=== PATIENT | male | born 1985 | race Two or more races ===

== ENCOUNTER 2024-03-01 17:04 | Emergency (ER) | payer SELFPAY ==
[2024-03-01 17:20] VITALS: BP 128/74; PULSE 63; RESP 19; TEMP 37.1; O2SAT 98; BMI 21.8
--- NOTE | 2024-03-01 17:42 | EXP.UTC ---
Discharge Plan Disposition Chief Complaint: Abdominal Pain Referrals Follow up/Referrals: Provider,Referral, [Primary Care Provider] - See instructions Instructions Patient Instructions: DI for Acute Abdominal Pain Print Language Print Language: Wallisian Discharge ED Provider: Ysabel Lazar [facility] General Chief complaint: Abdominal Pain Stated complaint: Stomach pain Mode of Arrival: Ambulatory Source of Information: Patient and Relative Limitations: No Limitations Time Seen by Provider: 03/01/24 17:42 Description of Symptoms (Recalled from Triage Doc. by RN): PATIENT C/O PAIN AND BLOATING TO UPPER ABDOMEN WHEN TRYING TO EAT THAT STARTED LAST NIGHT. PATIENT DENIES VOMITING OR DIARRHEA HEENT Symptoms (Recalled from RN notes): No Resp Symptoms (Recalled from RN notes): No Skin Symptoms (Recalled from RN notes): No MS Symptoms (Recalled from RN notes): No Functional Status (Recalled from RN notes): WNL History of Present Illness Provider Complaint: Patient primarily Wallisian speaking, used senior mobile solutions architect to communicate with patient, states that he started last night with moderate pain and discomfort across his upper abdomen that has continued to get worse pain started yesterday evening when he was trying to eat and not been able to eat much due to the pain, had 2 bowel movements yesterday and 2 day states one today was a little hard/a little soft denies vomiting or diarrhea states pain this evening is more uncomfortable Related Data Allergies Allergy/AdvReac Type Severity Reaction Status Date / Time No Known Allergies Allergy Verified 03/01/24 17:36 Worker's Comp Is this a Worker's Comp case?: No [facility] Disclaimer: The information contained in this section may have been updated after the patient was seen, as this information can be updated by other users. Medical History (Updated 03/01/24 @ 17:37 by Betty Melton RN) No significant past medical history Social History Smoking Status: Never smoker alcohol intake: never current occupational status: employed Travel in the last 8 weeks: None ROS Obtained: Yes All systems reviewed & no additional complaints except as documented and Yes Systems reviewed as appropriate & no additional complaints except as documented Constitutional Constitutional: Reports system reviewed and no additional complaints, except as documented, Reports as per HPI and Denies fever(s) ENT Ears, Nose, Mouth, and Throat: Reports system reviewed and no additional complaints, except as documented and Reports as per HPI Cardiovascular Cardiovascular: Reports system reviewed and no additional complaints, except as documented and Reports as per HPI Respiratory Respiratory: Reports system reviewed and no additional complaints, except as documented and Reports as per HPI Gastrointestinal Gastrointestingal: Reports system reviewed and no additional complaints, except as documented, as per HPI and abdominal pain (across upper abdomen); Denies belching, coffee ground emesis, diarrhea, hematemesis, melena, nausea or vomiting Physical Exam General General appearance: alert and in no apparent distress Respiratory Respiratory exam: Present normal lung sounds bilaterally; Absent respiratory distress or wheezes Cardiovascular Cardiovascular exam: Present regular rate and normal rhythm Abdominal Exam Abdominal exam: Present soft and tenderness (reports tenderness in upper abdomen with palpation) Neurological Exam Neurological exam: Present alert, oriented X3 and normal gait Medical Decision Making Medical Records Screening: Per USPSTF and CDC recommendations, given the prevalence of disease in our region, it is our hospital?s policy to screen for HIV and viral Hepatitis for all patients aged 18 and over and those with ongoing risk factors. Nick Inquiry Pt receiving controlled substance: No Nick was queried for this patient: No Vital Signs: 03/01/24 17:20 Temperature 98.8 F Temperature Source Oral Pulse Rate [Left Brachial] 63 Respiratory Rate 19 Blood Pressure [Left Arm] 128/74 Blood Pressure Mean [Left Arm] 92 Blood Pressure Source [Left Arm] Automatic Cuff Blood Pressure Position [Left Arm] Sitting 02 Sat by Pulse Oximetry 98 Oxygen Delivery Method Room Air Lab Data 03/01/24 18:03 03/01/24 18:03 Medical Decision Narrative: Patient states that he started with pain in his upper abdomen yesterday that has continued to get worse and not able to eat Patient sitting in chair and appears uncomfortable Denies N/V/D discussed with patient and due to complaints of abdominal pain will transfer to the ED for further work up and evaluaton and he agreed patient was moved to room 11
--- NOTE | 2024-03-01 17:43 | PC.NURSE ---
PATIENT SENT TO ER PER Laila RAMIREZ APRN FOR FURTHER EVALUATION. REPORT GIVEN TO DR. MALLOY BY Laila RAMIREZ APRN. PATIENT AMBULATED TO ER WITH [facility] STAFF ASSIST AT THIS TIME
[2024-03-01 17:53] VITALS: BP 143/93; PULSE 63; RESP 18; TEMP 37.3; O2SAT 97; BMI 23.0
--- NOTE | 2024-03-01 17:54 | CT_ITS ---
PROCEDURE INFORMATION: Exam: CT Abdomen And Pelvis With Contrast Exam date and time: 03/01/2024 6:28 PM Age: 38 years old Clinical indication: Abdominal pain TECHNIQUE: Imaging protocol: Computed tomography of the abdomen and pelvis with contrast. Radiation optimization: All CT scans at this facility use at least one of these dose optimization techniques: automated exposure control; mA and/or kV adjustment per patient size (includes targeted exams where dose is matched to clinical indication); or iterative reconstruction. Contrast material: ISOVUE; Contrast volume: 75 ml; Contrast route: IV; COMPARISON: No relevant prior studies available. FINDINGS: Lungs: Dependent bilateral lung base opacities favor atelectasis. Liver: Multiple hypoattenuating circumscribed structures of the liver compatible with simple hepatic cysts with the largest measuring 0.9 cm in diameter. Gallbladder and biliary ducts: Normal. No calcified stones. No ductal dilation. Pancreas: Normal. No ductal dilation. Spleen: Normal. No splenomegaly. Adrenal glands: Normal. No mass. Kidneys and ureters: Normal. No hydronephrosis. Stomach and bowel: Unremarkable. No obstruction. No mucosal thickening. Appendix: No evidence of appendicitis. Intraperitoneal space: Unremarkable. No free air. No significant fluid collection. Vasculature: Unremarkable. No abdominal aortic aneurysm. Lymph nodes: Unremarkable. No enlarged lymph nodes. Urinary bladder: Unremarkable as visualized. Reproductive: Unremarkable as visualized. Bones/joints: Mild loss of intervertebral disc space with degenerative changes at L4 through S1. Soft tissues: Normal. IMPRESSION: No CT findings that explain patient's symptoms.
--- NOTE | 2024-03-01 18:05 | ED_ITS ---
<Statement entered by Ysabel Lazar MD - 03/02/24 00:40> I was consulted by the ROOSEVELT, and we discussed the complexity of problems being addressed. I approved the treatment and management plan for this patient's care in the emergency department, thus performing a substantive portion of the medical decision making. Ysabel Lazar MD Discharge Plan Disposition Chief Complaint: Abdominal Pain Referrals Follow up/Referrals: Provider,Referral, [Primary Care Provider] - See instructions Instructions Patient Instructions: DI for Acute Abdominal Pain Print Language Print Language: Kinyarwanda Discharge ED Provider: Ysabel Lazar General Adult HPI General Chief complaint: Abdominal Pain Stated complaint: Stomach pain Time Seen by Provider: 03/01/24 17:42 Mode of Arrival: Ambulatory Source of Information: Patient Limitations: No Limitations Description of Symptoms (Recalled from ER Triage Doc. by RN): patient reports abdominal pain across abdomen worse in the left side. patient states it started a week ago and got better but started getting worse last night. patient reports it worsens with eating. Denies nausea, vomiting, and fevers. Reports last bowel movement was 3 hours ago. History of Present Illness HPI narrative: This is a 38-year-old male who presents to the ED today for abdominal pain that is more diffuse but worse on the left side. He says when he eats he feels swollen and has abdominal pain. This started 1 week ago. He says it went away but restarted worse yesterday. No vomiting or diarrhea. His last BM was about 3 hours ago. No back pain no dysuria. No fevers or chills. Denies any chest pain or shortness of breath. No other associated signs or symptoms at this time. Related Data Allergies Allergy/AdvReac Type Severity Reaction Status Date / Time No Known Allergies Allergy Verified 03/01/24 17:36 [facility] Disclaimer: The information contained in this section may have been updated after the patient was seen, as this information can be updated by other users. Medical History (Updated 03/01/24 @ 17:37 by Betty Melton RN) No significant past medical history Social History (Updated 03/01/24 @ 19:39 by Kavya Decker APRN) Smoking Status: Never smoker alcohol intake: never current occupational status: employed Travel in the last 8 weeks: None ROS Obtained: Yes Systems reviewed as appropriate & no additional complaints except as documented Constitutional Constitutional: Reports system reviewed and no additional complaints, except as documented and Reports as per HPI Physical Exam General General appearance: alert and in no apparent distress Head Head exam: atraumatic and normocephalic Eye Eye exam: Present normal appearance, PERRL and EOMI ENT ENT exam: Present normal exam, normal oropharynx and mucous membranes moist Neck Neck exam: Present normal inspection, full ROM and trachea midline Chest Chest inspection: Present normal inspection Respiratory Respiratory exam: Present normal lung sounds bilaterally Cardiovascular Cardiovascular exam: Present regular rate, normal rhythm, normal heart sounds, +S1 and +S2 Abdominal Exam Abdominal exam: Present soft, tenderness and normal bowel sounds Abdominal tenderness: Present LUQ and epigastrium Extremities Exam Extremities exam: Present normal inspection, full ROM and normal capillary refill Neurological Exam Neurological exam: Present alert, oriented X3 and normal gait Skin Skin exam: Present warm, dry and intact Medical Decision Making Medical Records Screening: Per USPSTF and CDC recommendations, given the prevalence of disease in our region, it is our hospital?s policy to screen for HIV and viral Hepatitis for all patients aged 18 and over and those with ongoing risk factors. Nick Inquiry Pt receiving controlled substance: No Vital Signs: 03/01/24 17:20 03/01/24 17:53 Temperature 98.8 F 99.1 F Temperature Source Oral Oral Pulse Rate [Left Brachial] 63 63 Respiratory Rate 19 18 Blood Pressure [Left Arm] 128/74 143/93 H Blood Pressure Mean [Left Arm] 92 109 Blood Pressure Source [Left Arm] Automatic Cuff Automatic Cuff Blood Pressure Position [Left Arm] Sitting 02 Sat by Pulse Oximetry 98 97 Oxygen Delivery Method Room Air Room Air Lab Data Lab Results 03/01/24 18:03: WBC 5.6, RBC 5.49, Hgb 17.0, Hct 50.6, MCV 92.0, MCH 31.0, MCHC 33.6, RDW 13.7, Plt Count 285, MPV 7.9, Neut % (Auto) 45.9, Lymph % (Auto) 8.9 L , [place] % (Auto) 28.2 H, Eos % (Auto) 16.5 H, Baso % (Auto) 0.5, Neut # (Auto) 2.6, Lymph # (Auto) 0.5 L, [place] # (Auto) 1.6 H, Eos # (Auto) 0.9 H, Baso # (Auto) 0.0, Total Counted 100, Neutrophils % (Manual) 48, Lymphocytes % (Manual) 7 L, Atypical Lymphs % 5.0, Monocytes % (Manual) 22 H, Eosinophils % (Manual) 18 H, Platelet Estimate Normal, RBC Morphology Normal, Sodium 139, Potassium 4.0, C hloride 108 H, Carbon Dioxide 28, Anion Gap 7.0, BUN 11, Creatinine 0.70, Estimated Creat Clear 117, Estimated GFR 125, Est GFR ( Amer) 151, Glucose 100, Calcium 9.3, Total Bilirubin 0.8, AST 39, ALT 35, Alkaline Phosphatase 75, Total Creatine Kinase 194 H, CK-MB (CK-2) 5.6 H, CK-MB (CK-2) Rel Index 2.9, Troponin I < 0.01, Total Protein 7.3, Albumin 4.5, Globulin 2.8, Albumin/Globulin Ratio 1.6, Amylase 74, Lipase 61, HIV 1&2 Antibody Rapid Nonreactive 03/01/24 19:02: Urine Color Yellow, Urine Appearance Clear, Urine pH 7.0, Ur Specific [place] 1.010, Urine Protein Negative, Urine Glucose (UA) Negative, Urine Ketones Negative, Urine Blood Negative, Urine Nitrate Negative, Urine Bilirubin Negative, Urine Urobilinogen 0.2, Ur Leukocyte Esterase Negative, Urine RBC Occasional, Urine WBC Occasional, Ur Squamous Epith Cells 3-5 03/01/24 18:03 03/01/24 18:03 Orders (Tests/Meds): ED MEDICATIONS Generic Name Dose Route Start Last Admin Trade Name Freq PRN Reason Stop Dose Admin Sodium Chloride 8 ml 03/01/24 17:53 Sodium Chloride 0.9% 10ml Vial IV 03/31/24 17:52 NEEDED PRN dilute pepcid Discontinued Medications Generic Name Dose Route Start Last Admin Trade Name Freq PRN Reason Stop Dose Admin Famotidine 20 mg 03/01/24 17:53 03/01/24 18:13 Famotidine 20mg/2ml Vial IV 03/01/24 17:54 20 mg ONCE ONE Administration Sodium Chloride 1,000 mls @ 999 mls/hr 03/01/24 18:00 03/01/24 18:14 Sod Chlor 0.9% 1000ml Bag IV 03/01/24 19:00 999 mls/hr .Q1H1M KETAN Administration Iopamidol 75 ml 03/01/24 18:33 03/01/24 18:33 Iopamidol-370 (76%);100ml Bottle IV 03/01/24 18:34 75 ml ONCE ONE Administration Ketorolac Tromethamine 30 mg 03/01/24 17:53 03/01/24 18:13 Ketorolac 30mg/Ml Vial IV 03/01/24 17:54 30 mg ONCE ONE Administration Ondansetron HCl 4 mg 03/01/24 17:53 03/01/24 18:13 Ondansetron 4mg/2ml Vial IV 03/01/24 17:54 4 mg ONCE ONE Administration Sodium Chloride 10 ml 03/01/24 18:33 03/01/24 18:33 Sodium Chloride 0.9% 10ml Syr (Rad Only) IV 03/01/24 18:34 10 ml ONCE ONE Administration ORDERS Category Date Time Status CT abdomen pelvis w con Stat Cat Scan 03/01/24 17:54 Completed Amylase Stat Lab 03/01/24 18:03 Completed CBC [Complete Blood Count Auto Diff] Stat Lab 03/01/24 18:03 Completed Cardiac Enzymes Stat Lab 03/01/24 18:03 Completed Comprehensive Metabolic Panel Stat Lab 03/01/24 18:03 Completed HIV (1&2) Antibody Rapid Stat Lab 03/01/24 18:03 Completed Hep C Ab with Reflex to RNA Stat Lab 03/01/24 18:03 Received Lipase Stat Lab 03/01/24 18:03 Completed Urinalysis and Microscopic Stat Lab 03/01/24 19:02 Completed Medical Decision Narrative: Insert review patient is a 38-year-old male presenting to the emergency department for evaluation of abdominal pain. Patient is hemodynamically stable and nontoxic-appearing upon arrival, afebrile. Differential diagnosis includes diverticulitis, bowel obstruction, cholecystitis, appendicitis, viral illness among others. Workup will be conducted with hematologic labs, specific imaging including CT scan with and without contrast. Initial inventions include crystalloid bolus, IV Toradol, Zofran for nausea. Initial workup reviewed by me urinalysis was normal, normal white count, normal liver and kidney function and normal CT scan. Imaging informally interpreted by me and remarkable for nothing acute. Formal imaging read remarkable for nothing acute. Upon repeat evaluation patient was improved and feeling better. Discussed with patient results of CT scan were negative and labs were essentially negative. Patient will be going home with some Lalo and Sammi. Critical Care Critical Care Time Critical Care Time: No
[2024-03-01] MEDS: KETOROLAC 30MG/ML VIAL 30 MG IV (18:13)
[2024-03-01] MEDS: ONDANSETRON 4MG/2ML VIAL 4 MG IV (18:13)
[2024-03-01] MEDS: FAMOTIDINE 20MG/2ML VIAL 20 MG IV (18:13)
[2024-03-01] MEDS: 0.9 % SODIUM CHLORIDE 1000ML 1,000 ML 999 ML IV (18:14)
[2024-03-01 18:16] LABS: Albumin Level 4.5 g/dl (3.5-5.0); Chloride 108 mmol/L (98-107); Sodium 139 mmol/L (136-145)
--- NOTE | 2024-03-01 18:16 | ECG_ITS ---
APPROVED REPORT Exam: Resting ECG HR:63 bpm ECG Measurements Heart Rate 63 AXES WV 168 P 50 QRSd 117 QRS 144 QT 390 T 8 QTc 398 Conclusion SINUS RHYTHM INCOMPLETE RIGHT BUNDLE BRANCH BLOCK [90+ ms QRS DURATION, TERMINAL R IN V1/V2, 40+ ms S IN I/aVL/V4/V5/V6] RIGHT VENTRICULAR HYPERTROPHY [SOME/ALL OF: PROMINENT R IN V1, LATE TRANSITION, RAD, KEESHA, SSS] ST ELEVATION, PROBABLY EARLY REPOLARIZATION [ST ELEVATION WITH NORMALLY INFLECTED T-WAVE] ABNORMAL ECG UNCONFIRMED REPORT Electronically signed by : Ysabel Lazar, 03/01/2024 20:13:00
[2024-03-01 18:19] LABS: Alanine Aminotransferase 35 U/L (12-78); Albumin/Globulin Ratio 1.6 (1.1-1.8); Alkaline Phosphatase 75 U/L (38-126); Amylase 74 U/L (30-110); Aspartate Amino Transferase 39 U/L (17-59); Bilirubin,Total 0.8 mg/dl (0.2-1.3); Blood Urea Nitrogen 11 mg/dl (9-20); Calcium 9.3 mg/dl (8.4-10.2); Creatine Kinase 194 U/L (55-170); Creatinine Clearance Estimated 117 mL/min (50-200); Estimated Glomerular Filt Rate 125 ml/min (>60); GFR (African American) 151 ML/MIN (>60); Globulin 2.8 g/dL (1.3-3.2); Glucose 100 mg/dl (74-100); Total Protein,Serum 7.3 g/dl (6.3-8.2)
--- NOTE | 2024-03-01 18:22 | PC.NURSE ---
pt to CT
[2024-03-01 18:28] LABS: CKMB Relative Index 2.9 U/L (0-4.0); Creatine Kinase MB 5.6 ng/ml (0.0-2.03)
[2024-03-01 18:33] LABS: Troponin I < 0.01 ng/ml (0.00-0.034)
[2024-03-01] MEDS: SODIUM CHLORIDE 0.9% 10ML SYR (RAD ONLY) 10 ML IV (18:33)
[2024-03-01] MEDS: IOPAMIDOL-370 (76%);100ML BOTTLE 75 ML IV (18:33)
[2024-03-01 18:36] LABS: Carbon Dioxide 28 mmol/L (22.0-30.0); Lipase 61 U/L (23-300)
[2024-03-01 18:38] LABS: Basophils % 0.5 % (0.1-2.0); Eosinophils # 0.9 K/mm3 (0.0-0.4); Eosinophils % 16.5 % (0.1-12.0); Hematocrit 50.6 % (42.0-52.0); Lymphocytes # 0.5 K/mm3 (0.7-4.5); Lymphocytes % 8.9 % (10-50); Mean Corpuscular HGB Conc 33.6 g/dL (31.8-35.4); Mean Platelet Volume 7.9 fl (7.4-10.4); Monocytes # 1.6 K/mm3 (0.1-1.0); Monocytes % 28.2 % (1.7-9.3); Neutrophils # 2.6 K/mm3 (1.8-7.8); Neutrophils % 45.9 % (37.0-80.0); Platelet Count 285 K/mm3 (142-424); Red Blood Count 5.49 M/mm3 (4.60-6.20); Red Cell Distribution Width 13.7 % (11.5-17.5); White Blood Count 5.6 K/mm3 (4.8-10.8)
[2024-03-01 18:40] LABS: MANUAL DIFFERENTIAL MANUAL DIFFERENTIAL (MANUAL DIFF)
[2024-03-01 18:42] LABS: HIV (1&2) Antibody Rapid NONREACTIVE (NONREACTIVE)
[2024-03-01 19:03] LABS: Eosinophils % 18 % (0-3); Lymphocytes % 7 % (10-50); Monocytes % 22 % (2-9); Neutrophils % 48 % (42-76); Platelet Estimate Normal; RBC Morphology Normal; Total Cells Counted 100
[2024-03-01 19:06] LABS: Microscopic, Urine URINE MICROSCOPIC (MICROSCOPIC)
[2024-03-01 19:07] LABS: Appearance,Urine CLEAR (Clear); Bilirubin,Urine Negative (Negative); Blood, Urine Negative (Negative); Color,Urine YELLOW (Yellow); Glucose,Urine (UA) Negative (Negative); Ketones,Urine Negative (Negative); Leukocyte Esterase,Urine Negative (Negative); Nitrate,Urine Negative (Negative); Protein,Urine Negative (Negative); Urobilinogen,Urine 0.2 EU/dl (0.2)
[2024-03-01 19:23] LABS: RBC,Urine Occasional #/hpf (0-3)
[2024-03-01 19:24] LABS: WBC,Urine Occasional #/hpf (0-3)
[2024-03-01 20:11] VITALS: BP 133/80; PULSE 68; RESP 18; TEMP 36.9; O2SAT 97
[2024-03-03 11:12] LABS: HCV Ab Non Reactive (Non Reactive)
== END 2024-03-01 20:11 | disposition home or self-care (01) ==
LOC: UTC 17:17 → ER 17:43
PROVIDERS: Nurse Practitioner; Emergency Provider Student in an Organized Health Care Education/Training Program
DX: R10.84 Generalized abdominal pain (principal)
CPT/HCPCS: 74177; 80053; 81001; 82150; 82550; 82553; 83690; 84484; 85007; 85025; 85027; 86803; 87389; 93005; 96361; 96374; 96375; 99284; J1885; J2405; J7030; Q9967; S0028